=== PATIENT | female | born 1995 | race Caucasian/White ===

== ENCOUNTER 2019-09-10 06:13 | Emergency (ER) | payer OTHER ==
[~2019-09-10] VITALS: Ht 157.5 cm; Wt 81.7 kg
[2019-09-10 06:37] LABS: URINE BILIRUBIN NEGATIVE (Negative); URINE BLOOD TRACE (Negative); URINE CLARITY CLEAR; URINE COLOR YELLOW; URINE GLUCOSE-RANDOM* NEGATIVE (Negative); URINE KETONES NEGATIVE (Negative); URINE LEUKOCYTES-REFLEX NEGATIVE (Negative); URINE PROTEIN (DIPSTICK) NEGATIVE (Negative); URINE SPECIFIC GRAVITY <= 1.005 (1.005-1.035); URINE UROBILINOGEN 0.2 E.U./dl (0.2-1.0)
[2019-09-10 06:43] LABS: URINE NITRITE-REFLEX POSITIVE (Negative)
[2019-09-10 06:49] LABS: AMP/METHAMP Negative (Negative); BACTERIA-REFLEX 1-9 Few /HPF (None Seen); BARBITURATES Negative (Negative); BENZODIAZEPINES Negative (Negative); CASTS None Seen /LPF (None Seen); COCAINE Negative (Negative); CRYSTALS None Seen /LPF (None Seen); METHADONE Negative (Negative); OPIATES Negative (Negative); PCP Negative (Negative); SQUAMOUS 0-3 Few /LPF (0-3); URINE RBC None Seen /HPF (0-2); URINE WBC-REFLEX None Seen /HPF (0-5)
[2019-09-10 07:20] LABS: ABSOLUTE NEUTROPHILS 8.6 thou/uL (1.4-8.2); BASOPHILS 0.3 % (0.0-2.0); EOSINOPHILS 0.9 % (0.0-3.0); HEMATOCRIT 42.1 % (37.0-47.0); HEMOGLOBIN 14.3 gm/dL (12.0-15.0); LYMPHOCYTES 22.5 % (24.0-44.0); MCHC 33.9 g/dL (28.0-37.0); MCV 91.4 fL (80.0-100.0); MONOCYTES 5.1 % (1.0-8.0); PLATELET COUNT 357 thou/uL (150-400); POLYS 71.2 % (36.0-66.0); RDW 13.7 % (10.5-14.5); WBC 12.1 thou/uL (4.0-11.0)
[2019-09-10 07:22] LABS: ANION GAP 14 mmol/L (7-16); BUN 11 mg/dL (7-18); CALCIUM 8.9 mg/dL (8.5-10.1); CHLORIDE 101 mmol/L (98-107); CO2 23 mmol/L (21-32); CREATININE 1.1 mg/dL (0.6-1.0); GLUCOSE 113 mg/dL (74-106); POTASSIUM 3.4 mmol/L (3.5-5.1); SODIUM 138 mmol/L (136-145)
[2019-09-10 07:28] LABS: ALBUMIN 4.3 g/dL (3.4-5.0); SALICYLATE 2.7 mg/dL (2.8-20.0); SGOT 28 U/L (15-37); SGPT 50 U/L (30-65); TOTAL BILIRUBIN 0.2 mg/dL (<0.1-1.0); TOTAL PROTEIN 8.6 g/dL (6.4-8.2)
[2019-09-10 13:20] VITALS: BP 109/59
[2019-09-10] MEDS ORDERED: LORAZEPAM 1 MG T1 MG PO (13:20)
--- NOTE | 2019-09-11 07:52 | EKG ---
[facility] [place] [address] ELECTROCARDIOGRAM REPORT Name: JOVANI DREW Room #: [id number] Admission: 09/10/19 Attend Phys: Discharge: 09/10/19 Date of : [birth year] Report #: [id number] THIS REPORT FOR: cc: FAM - Family physician unknown FAM - Family physician unknown Vikas Velazquez MD [facility] ~ THIS REPORT FOR: //name// [facility] ED Test Date: 2019-09-10 Test Time: 06:57:12 Pat Name: JOVANI DREW Department: Patient ID: [id number]- Room: Gender: F [employer]: ELLIE : 1995 Requested By: Andrew Butcher Order Number: [id number] MD: Vikas Velazquez Measurements Intervals [place] Rate: 125 P: 39 [place]: 149 QRS: 76 QRSD: 82 T: -5 QT: 299 QTc: 432 Interpretive Statements Sinus tachycardia Borderline Q waves in inferior leads Borderline T wave abnormalities No previous ECG available for comparison Electronically Signed On 09-11-2019 7:51:12 BUILDING OFFICIAL by Vikas Velazquez [email or web address] <ELECTRONICALLY SIGNED> By: Vikas Velazquez MD, [facility] 09/11/19 [id number] Vikas Velazquez MD, FACC /EPI
== END 2019-09-10 13:20 | disposition home or self-care (01) ==
LOC: ER 06:13
PROVIDERS: Emergency Medicine
DX: F41.0 Panic disorder [episodic paroxysmal anxiety] (principal); F41.9 Anxiety disorder, unspecified; F31.9 Bipolar disorder, unspecified; Z88.8 Allergy status to other drugs, medicaments and biological substances